=== PATIENT | female | born 1985 | race African-American/Black ===

== ENCOUNTER → 2020-02-26 16:06 | Outpatient (BNVA) | payer OTHER, SELFPAY | PROVIDERS: PCP Internal Medicine; Referring Provider Internal Medicine; Visit Provider Student in an Organized Health Care Education/Training Program | DX: M32.9 Systemic lupus erythematosus, unspecified (principal); D68.61 Antiphospholipid syndrome; Z88.0 Allergy status to penicillin; Z88.5 Allergy status to narcotic agent; Z91.018 Allergy to other foods; Z79.02 Long term (current) use of antithrombotics/antiplatelets; Z79.899 Other long term (current) drug therapy; Z87.891 Personal history of nicotine dependence | CPT/HCPCS: 99212 ==

== ENCOUNTER 2020-09-19 11:15 | Outpatient (REF) | payer OTHER, SELFPAY ==
--- NOTE | ~2020-09-19 | XR_ITS ---
EXAMINATION: XR WRIST, LEFT CLINICAL INFORMATION: Lupus COMPARISON: None TECHNIQUE: PA, lateral, and oblique views of the left wrist. FINDINGS: There is collapse or narrowing of the proximal carpal row. There is new ulnar subluxation of the proximal carpal row with respect to the distal radius and ulna. There is remodeling of the distal radial ulnar joint. The bones are osteopenic. There is diffuse soft tissue swelling about the wrist. XR/XR wrist LT min 3V IMPRESSION: Osteopenia. New collapse of the proximal carpal row and subluxation of the proximal carpal row with respect to the distal radius and ulna. Diffuse soft tissue swelling.
[2020-09-19 13:08] LABS: MANUAL DIFF FLAG NO
[2020-09-19 13:14] LABS: Basophils Percent Auto 0.3 % (0-2); Eosinophils Absolute Auto 0.2 X10*3/uL (0.0-0.4); Eosinophils Percent Auto 1.8 % (0-4); Hematocrit 32.9 % (37-47); Hemoglobin 9.4 g/dl (12.0-16.0); Imm Gran Abs Auto 0.06 X10*3/uL (0.00-0.03); Imm Gran Pct Auto 0.6 % (0.0-0.4); Lymphocytes Percent Auto 30.7 % (20-40); Mean Corpuscular HGB Conc 28.6 g/dl (31.0-35.0); Mean Corpuscular Hemoglobin 20.8 pg (27.0-33.0); Mean Corpuscular Volume 72.9 fL (80-98); Mean Platelet Volume 9.8 fL (9.4-12.3); Monocytes Absolute Auto 0.7 X10*3/uL (0.1-1.2); Monocytes Percent Auto 6.9 % (2-11); Neutrophils Absolute Auto 5.9 X10*3/uL (2.0-8.3); Neutrophils Percent Auto 59.7 % (45-73); Platelet Count 485 X10*3/uL (160-400); Red Blood Count 4.51 X10*6/uL (4.20-5.50); Red Cell Distribution Width 18.4 % (11.0-16.0); White Blood Count 9.8 X10*3/uL (4.8-10.8)
[2020-09-19 13:31] LABS: Alanine Aminotransferase 16 U/L (0-31); Albumin Level 4.1 g/dL (3.5-5.0); Alkaline Phosphatase 212 U/L (39-117); Anion Gap 13 (12-20); Aspartate Amino Transferase 20 U/L (5-31); Bilirubin Total 0.6 mg/dL (0.0-1.0); Blood Urea Nitrogen 14 mg/dL (9-16); Calcium 9.3 mg/dL (8.4-10.2); Carbon Dioxide 23 mmol/L (22-29); Chloride 103 mmol/L (96-108); Estimated Glomerular Filt Rate > 60; Glucose Random 73 mg/dL (60-115); Potassium 4.3 mmol/L (3.3-5.1); Sodium 135 mmol/L (135-145); Total Protein 7.9 g/dL (6.5-8.0)
[2020-09-19 13:31] LABS: Glucose Urine UA NEG (NEG); Leukocyte Esterase Urine NEG (NEG); Nitrite Urine NEG (NEG); PH 5.5 (5.0-8.0); Specific Gravity - Urine >= 1.030 (1.005-1.025); Urine Blood NEG (NEG); Urine Ketones 5 MG/DL (NEG); Urine Protein TRACE MG/DL (NEG-TRACE)
[2020-09-19 13:35] LABS: Alanine Aminotransferase 16 U/L (0-31); Albumin Level 4.1 g/dL (3.5-5.0); Alkaline Phosphatase 212 U/L (39-117); Anion Gap 13 (12-20); Aspartate Amino Transferase 20 U/L (5-31); Bilirubin Total 0.6 mg/dL (0.0-1.0); Blood Urea Nitrogen 14 mg/dL (9-16); C Reactive Protein 3.01 mg/dL (< or = 0.50); Calcium 9.2 mg/dL (8.4-10.2); Carbon Dioxide 22 mmol/L (22-29); Chloride 104 mmol/L (96-108); Estimated Glomerular Filt Rate > 60; Glucose Random 73 mg/dL (60-115); Potassium 4.3 mmol/L (3.3-5.1); Sodium 135 mmol/L (135-145); Total Protein 7.9 g/dL (6.5-8.0)
[2020-09-19 13:42] LABS: Appearance Urine HAZY; Color Urine DARK YELLOW
[2020-09-19 13:54] LABS: Mucus Urine 3+ /LPF; RBC Urine 0 /HPF (0); Squamous Epithelial Cell Urine 1+ /LPF; WBC Urine 0 /HPF (0-4)
[2020-09-19 14:24] LABS: Erythrocyte Sedimentation Rate 28 MM/HR (0-20)
[2020-09-20 13:03] LABS: Anti DNA DS Antibody 5 IU/mL
[2020-09-22 18:52] LABS: Complement C3 189 mg/dL (83-193)
[2020-09-25 16:42] LABS: Cardiolipin IgG Ab <14 GPL; Cardiolipin IgM Ab <12 MPL
== END 2020-09-19 11:16 | disposition home or self-care (01) ==
LOC: HO.XRAY 11:15
PROVIDERS: Internal Medicine Medical Oncology; PCP Internal Medicine; Visit Provider Student in an Organized Health Care Education/Training Program
DX: M32.9 Systemic lupus erythematosus, unspecified (principal); M25.432 Effusion, left wrist; D68.61 Antiphospholipid syndrome; Z79.899 Other long term (current) drug therapy
CPT/HCPCS: 36415; 73110; 80053; 81001; 85025; 85652; 86140; 86147; 86160; 86225; 99212

== ENCOUNTER → 2020-09-24 13:55 | Outpatient (BNVA) | payer OTHER, SELFPAY | PROVIDERS: PCP Internal Medicine; Visit Provider Orthopaedic Surgery | DX: S63.025A Dislocation of radiocarpal joint of left wrist, initial encounter (principal); M32.9 Systemic lupus erythematosus, unspecified | CPT/HCPCS: 99202 ==

== ENCOUNTER 2020-10-10 17:58 | Outpatient (REF) | payer OTHER, SELFPAY ==
--- NOTE | ~2020-10-10 | MR_ITS ---
EXAMINATION: MRI WRIST WITHOUT CONTRAST, LEFT CLINICAL INFORMATION: History of lupus. COMPARISON: Left wrist radiograph dated 09/19/2020. TECHNIQUE: MRI of the left wrist was performed without administration of IV contrast Multisequence, multiplanar images were obtained. FINDINGS: Bones: There is mild negative ulnar variance. Cortical irregularity along the radius at the DRUJ. High-grade radial cartilage loss most prominent in the ulnar aspect of the radius with severe joint space narrowing at the radial scaphoid articulation. Early erosive changes in the volar and ulnar margin of the radius (4:13). There is mild sclerosis of the lunate with superimposed bone edema most prominent on the radial side of the lunate respectively. There is severe chondrosis of the lunate and ulna with complete loss of the ulnar carpal joint space. Triquetrum is spared of degenerative changes. The wrist is approximated. There is volar subluxation of the carpus relative to the ulna. The radius and carpal bones maintain normal alignment. Carpal bones are approximated. Moderate effusion and synovitis in the wrist is appreciated. Tendons: The extensor and flexor tendons are intact. Ligaments: The volar and dorsal components of the scapholunate ligament are intact. Degenerative changes in the interosseous components of the scapholunate ligament are noted. The volar, interosseous, and dorsal components of the lunotriquetral ligament are intact. TFCC: There is prominent thinning of the central disc and apparent full-thickness perforation in the central disc of the TFCC (5:12) result effusion in the DRUJ is appreciated with associated synovitis. The proximal and distal lamina are intact at the foveal and ulnar styloid attachments. The meniscal homologue, ulnar collateral ligament and ECU tendon sheath are intact. The volar and dorsal radioulnar and volar ulnolunate and ulnotriquetral ligaments are intact. Carpal Tunnel: The median nerve has a normal caliber and signal. There is no crowding of the carpal tunnel. Guyon?s Canal: The ulnar nerve has a normal caliber and signal. Soft Tissues: The muscles are normal in morphology and signal intensity. No fluid collection. Mild subcutaneous edema in the dorsal soft tissues. MR/MR wrist LT wo con IMPRESSION: Left wrist: 1. Severe radiocarpal and ulnocarpal joint arthrosis with associated wrist joint effusion and diffuse synovitis. 2. Full-thickness perforation and tearing in the central TFCC disc with resultant effusion in the DRUJ and DRUJ synovitis. 3. Prominent marrow edema in the lunate presumably related to degenerative changes however this appearance can be seen in the setting of early lunate osteonecrosis. This is of concern given patient's history of lupus. 4. Mild negative ulnar variance and sequelae of mild ulnar impaction syndrome at the DRUJ. 5. Dorsal subluxation of the ulna relative to the carpal bones which maintain normal approximation to the radius.
== END 2020-10-10 17:59 | disposition home or self-care (01) ==
LOC: HO.MRI 17:58
PROVIDERS: Visit Provider Student in an Organized Health Care Education/Training Program
DX: M25.432 Effusion, left wrist (principal)
CPT/HCPCS: 73221

== ENCOUNTER 2023-12-05 14:59 | Outpatient (AMB) | payer OTHER, SELFPAY ==
--- NOTE | 2023-12-05 15:02 | MHC.OFFVIS ---
Vital Signs 12/05/23 15:14 Height 5 ft 5 in Weight 202 lb 13.204 oz BMI 33.7 BP 122/80 Blood Pressure Location Rt brachial Position Sitting Pulse 74 Pulse Source Palpation Pulse Oximetry (%) 0 L Intake Visit Reasons: SLE Intake Note: Patient presents for SLE. Allergies Penicillins [PENICILLINS] Allergy (Intermediate, Verified 12/05/23 15:09) HIVES hydrocodone [HYDROCODONE] Allergy (Mild, Verified 12/05/23 15:09) VOMITING Vicodin Allergy (Intermediate, Uncoded 02/26/20 16:29) Vomiting nuts Allergy (Mild, Uncoded 02/26/20 16:29) Anaphylaxis Medication List - Last Reconciled 12/05/23 by Awa Mcneill MD acetaminophen (Tylenol) 650 mg PO Q6H PRN bupropion HCl XL 150 mg PO DAILY clonidine HCl 0.1 mg PO BID cyclobenzaprine mg PO ibuprofen 800 mg PO Q6H methadone 40 mg PO DAILY pantoprazole 40 mg PO DAILY HPI Comments Details: This is a 37-year-old female with SLE who presents as a new patient for me. She states that her SLE was doing reasonably well until about 7 months ago when she started flaring, she is having joint pains, progressive deformities of her fingers, rashes on her fingers, face, hair loss, her main complaint is her bilateral lower extremity wounds. She states that she has had these leg wounds about 7 years ago when she was using IV drugs in her legs and she developed an abscess. Since then she has had these bilateral open leg ulcers, on and off. The wounds have become much more severe over the last 7 months. She does not recall how exactly they improve. But she would follow-up with wound care. She just started going back to wound care. She takes ibuprofen 800 mg about 5 times a day. She has not been taking her Eliquis for fear of bleeding with the amount ibuprofen she takes. Initial history by Dr. 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 She was not very compliant with her warfarin. She is following with the coumadin clinic and pcp. She saw infectious disease for positive T spot and she put on rifampin and izoniazide, she is off treatment now. Patient was diagnosed with sle in 2007, she was having arthralgia and swelling and rash. No other organ involvement. Patient was following with Dr Delgado and was on plaquenil and prednisone and she stopped following up. She stopped taking the plaquenil on her own about 4 years ago. She complains of joints pain in the hands with swelling, she gets malr rash, she has photosensitivity, no sicca symptoms, no oral ulcers, no hair falling out, no seizures, no serositis. Patient has 2 kids, no miscarriages, she had dvt in the left leg in October 2015 and is on warfarin. Patient states she has a wound on her left leg for about a year and it did not heal yet and she is following with the wound clinic. Patient smokes 2-3 cigarettes a day. No history of lupus or rheumatoid arthritis in the family. COUNT INCLUDES THE [facility] Medical History Antiphospholipid antibody syndrome Lupus History of intravenous drug abuse Ulcer of left lower extremity Antiphospholipid syndrome Positive QuantiFERON-TB Gold test Systemic lupus erythematosus PVD (peripheral vascular disease) Surgical History Hx of cholecystectomy Family History Mother Diabetes HTN (hypertension) Hyperlipemia Father Sickle-cell anemia Social History Alcohol intake: never Patient Tobacco Use Status: Former Tobacco user Tobacco use type: Cigarette Cigarettes Per Day: 4 Years Smoked: 16 Current occupational status: disabled Current occupation: rt hand / [employer] Const Reports fatigue Musc Reports arthralgias and Reports joint swelling Skin/Breast Reports alopecia, Reports lesions, Reports erythema, Reports rash, Reports skin ulcer and Reports wounds Endo Reports fatigue Physical Exam Vital Signs: Last Vital Signs Pulse 74 12/05/23 15:14 BP 122/80 12/05/23 15:14 Pulse Ox 0 L 12/05/23 15:14 BMI result Body Mass Index 33.7 Const General: cooperative, healthy appearing and comfortable Nutritional Appearance: obese Orientation/consciousness: patient oriented x3 Limitations: no limitations HEENT Head: Yes normocephalic and Yes atraumatic Mouth: moist mucous membranes Resp Effort & Inspection: normal respiratory effort and able to speak in complete sentences Cardio Rate: regular rate Rhythm: regular rhythm Skin Other: Multiple areas of hyperpigmentation on her forearms and arms Mild erythematous discoloration of her cheeks Patient showed me pictures of large ulcers on her legs Neuro General: patient oriented x3 Extrem Other: Significant Jaccoud's arthropathy both hands but no active synovitis Assessment & Plan Assessment & Plan (1) Lupus: Comment: dx 2007 (malar rash, Jaccoud's, mouth sores, hair loss, PE, ITP, DVT, +++DsDNA) Code(s): M32.9 - Systemic lupus erythematosus, unspecified Category: Medical Plan: This is a 37-year-old female with SLE who presents for follow-up. This is her 1st visit with me. Has not been on treatment for years. Her SLE history seems to be quite complex. It seems her main symptom today is her bilateral leg ulcers. These eventually started out as infected ulcers from IV drug abuse, since then she has had these leg wounds on and off, she states that she has had a biopsy, results not available to me over the last 7 months the leg wounds have become bigger. Patient follows up with wound care. She takes plenty of ibuprofen to handle her pain. She is also back on methadone Advised patient to stop ibuprofen, go back on her Eliquis, start prednisone 40 mg daily for 2 weeks then remain on 20 mg daily Start hydroxychloroquine at 200 mg daily( I will avoid full-dose due to additive risk of QTC prolongation with methadone) Labs today follow-up in 6 weeks (2) Antiphospholipid antibody syndrome: Comment: History of DVT and PE, per patient most recent PE was in 2021 Code(s): D68.61 - Antiphospholipid syndrome Category: Medical Plan: Patient states that she is supposed to be on Eliquis but she is not taking it as she is consuming large amounts of ibuprofen. Advised patient to stop ibuprofen and restart Eliquis (3) Long-term use of hydroxychloroquine: Code(s): Z79.899 - Other csw (current) drug therapy Category: Medical Plan: We will discuss risk of retinopathy with hydroxychloroquine next visit. Plan I spent 49 minutes reviewing patient's chart, evaluating patient, ordering diagnostic workup, counseling patient and documenting in the chart Orders: Orders Lupus Anticoagulant Panel Today D68.61 - Antiphospholipid syndrome Complement C4 Today M32.9 - Systemic lupus erythematosus, unspecified Protein Creatinine Ratio, Ur Today M32.9 - Systemic lupus erythematosus, unspecified Sjogren's Antibodies Today M32.9 - Systemic lupus erythematosus, unspecified UA w Microscopic Today M32.9 - Systemic lupus erythematosus, unspecified Complete Blood Count Auto Diff Today M32.9 - Systemic lupus erythematosus, unspecified T Spot TB Today Z11.7 - Encounter for testing for latent tuberculosis infection Protein Electrophoresis, Serum Today M32.9 - Systemic lupus erythematosus, unspecified ANCA Vasculitides Today I77.6 - Arteritis, unspecified Beta-2 Glycoprotein Antibody Today D68.61 - Antiphospholipid syndrome Cardiolipin Antibodies Today D68.61 - Antiphospholipid syndrome Anti Extractable Nuclear Ag Today M32.9 - Systemic lupus erythematosus, unspecified Anti DNA DS Antibody Today M32.9 - Systemic lupus erythematosus, unspecified Complement C3 Today M32.9 - Systemic lupus erythematosus, unspecified C Reactive Protein Today M32.9 - Systemic lupus erythematosus, unspecified DNA Double Stranded-Crithidia Today M32.9 - Systemic lupus erythematosus, unspecified Erythrocyte Sedimentation Rate Today M32.9 - Systemic lupus erythematosus, unspecified Comprehensive Met. Panel Today M32.9 - Systemic lupus erythematosus, unspecified Hepatitis A,B,C Profile Today Z11.59 - Encounter for screening for other viral diseases Immunofixation Pnl, Serum Today M32.9 - Systemic lupus erythematosus, unspecified Medications: New prednisone Take 2 tabs daily for 2 weeks then remain on 1 tab daily 90 tabs 0RF hydroxychloroquine 200 mg PO DAILY 90 tabs 1RF Coding Level of Care Code New Pt Level 4 (56861) Diagnoses Lupus M32.9 Antiphospholipid antibody syndrome D68.61 Long-term use of hydroxychloroquine Z79.899
[2023-12-05 15:14] VITALS: BP 122/80; PULSE 74; O2SAT 0; BMI 33.7
== END 2023-12-05 16:01 | disposition home or self-care (01) ==
PROVIDERS: PCP Internal Medicine; Visit Provider Student in an Organized Health Care Education/Training Program
DX: M32.9 Systemic lupus erythematosus, unspecified (principal); D68.61 Antiphospholipid syndrome; Z79.899 Other long term (current) drug therapy
CPT/HCPCS: 99204

== ENCOUNTER → 2023-12-05 14:59 | Outpatient (BNVA) | payer OTHER, SELFPAY | PROVIDERS: PCP Internal Medicine; Visit Provider Student in an Organized Health Care Education/Training Program | DX: M32.9 Systemic lupus erythematosus, unspecified (principal); D68.61 Antiphospholipid syndrome; Z79.899 Other long term (current) drug therapy | CPT/HCPCS: 99202 ==